=== PATIENT | female | born 1965 | race Caucasian/White ===

== ENCOUNTER → 2020-05-03 15:47 | Outpatient (BNVA) | payer OTHER, SELFPAY | PROVIDERS: Family Provider Nurse Practitioner; PCP Nurse Practitioner; Visit Provider Nurse Practitioner Family | DX: N39.0 Urinary tract infection, site not specified (principal); R30.0 Dysuria | CPT/HCPCS: 81003 ==

== ENCOUNTER 2020-05-20 08:15 | Outpatient (CLI) | payer OTHER, SELFPAY ==
--- NOTE | 2020-05-20 08:20 | MM_ITS ---
WS: [id number] Bilateral screening digital mammogram, 05/20/2020 Clinical Data: SCREENING Comparison: 04/23/2019, 01/18/2018, 06/27/2016, 07/13/2014, 03/02/2011, 03/03/2010, 01/02/2007. Findings: The breast parenchymal pattern shows heterogeneously density. No spiculated masses or clustered calc ifications are seen. There are no secondary signs of carcinoma. MM/[id number] Impression: 1. Negative bilateral mammogram unchanged. 2. Recommend annual screening mammograms. BIRADS: 1-Negative FOLLOW UP: 1 Year Follow-up The CAD core checker was used.
== END 2020-05-20 08:16 | disposition home or self-care (01) ==
LOC: RADSHAW 08:18
PROVIDERS: PCP Nurse Practitioner; Visit Provider Nurse Practitioner
DX: Z12.31 Encounter for screening mammogram for malignant neoplasm of breast (principal)
CPT/HCPCS: 77067

== ENCOUNTER 2020-07-07 11:49 | Outpatient (CLI) | payer OTHER, SELFPAY ==
[2020-07-07 12:04] VITALS: BMI 25.4
--- NOTE | 2020-07-07 12:04 | ECG_ITS ---
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 Interpretive Statements NAME OF STUDY: TREADMILL STRESS ECHOCARDIOGRAM INDICATION: Chest Pain PROCEDURE: At the baseline, the patient's blood pressure was 95/54 with a heart rate of 76. The baseline electrocardiogram showed normal sinus rhythm with normal ST-Ts.. The patient exercised for 4 minutes and 35 seconds on a standard Faisal protocol. Patient attained a maximum heart rate of 145 beats per minute(87% of the maximum predicted heart rate) with a blood pressure at the peak exercise of 138/80 mm Hg. The EKG at the peak exercise revealed no significant changes. Patient did not have any chest pain or any other significant symptoms During the recovery phase, there were no new changes. Blood pressure at the end of the recovery phase was 96/52 mm Hg with a heart rate of 75 per minute. Echocardiographic pictures were taken at the baseline, immediately following the peak exercise and during the recovery phase. CONCLUSION: 1. Normal EKG response to treadmill exercise 2. No exercise-induced chest pain or cardiac arrhythmia 3. Impaired exercise tolerance, attained a maximum of 7.0 METs 4. Please see separate report for the echocardiographic response to exercise. Electronically Signed On 07-15-2020 9:48:22 TRANSFORMER MAKER by Deion Boudreaux M.D. [id number]
[2020-07-07 12:56] VITALS: BP 113/78; PULSE 78
--- NOTE | 2020-07-07 13:00 | USCV_ITS ---
Stress Echo Linnea Schultz Age: 54 Gender: F : 1965 Exam Date: 07/07/2020 11:03 Ordering Phys: Deion Boudreaux MD ([email or web address]) Technologist: Milagros Arreguin Exam Location: [facility] [place] Indication: Dyspnea on exertion Rhythm: Sinus Patient History: smoker Cardiac Medications: none Medications in past 24 hours: none Contrast: Stress Results Protocol: Faisal Total dose(mL): Exercise Duration (min:sec): 04:35 METS: 7.0 Resting HR: 66 Resting BP: 94 / 54 Peak HR: 145 Peak BP: 138 / 81 Max Predicted HR: 165 88 % Max Predicted HR Target HR: 140 Double Product: [id number] Stress Summary: The patient's target heart rate was achieved The hemodynamic response to exercise was normal BP Response: Normal Reason for Termination: Test terminated after reaching target heart rate (85% max predicted) Cardiac Symptoms: Short of Breath, Leg fatigue ECG Analysis Resting ECG: Please see separate report Stress ECG: Please see separate report Arrhythmia: Please see separate report MEASUREMENTS (Male/Female) Normal Values FINDINGS The baseline echocardiogram will normal LV size and ejection fraction. Segmental wall motion analysis revealed no gross wall motion abnormalities. The mitral and the aortic valve morphology probably within normal limits.Nopericardial effusion. With the peak exercise, there was good augmentation of all the segments with no exercise-induced wall motion abnormalities. During the recovery phase, the wall motion returned to the baseline. CONCLUSIONS Normal echocardiographic response to treadmill exercise. No significant coronary ischemia, based on the above findings No similar previous studies are available for comparison Dr Deion Boudreaux MD [facility] (Electronically Signed) Final Date: 07 July 2020 14:30 S
== END 2020-07-07 11:50 | disposition home or self-care (01) ==
PROVIDERS: PCP Nurse Practitioner; Visit Provider Internal Medicine Cardiovascular Disease
DX: R07.89 Other chest pain (principal)
CPT/HCPCS: 93017; 93350

== ENCOUNTER → 2020-10-20 09:57 | Outpatient (BNVA) | payer OTHER, SELFPAY | PROVIDERS: PCP Nurse Practitioner; Visit Provider Nurse Practitioner Family | DX: B35.1 Tinea unguium (principal) | CPT/HCPCS: 80053 ==

== ENCOUNTER → 2021-08-19 08:21 | Outpatient (BNVA) | payer OTHER, SELFPAY | PROVIDERS: PCP Nurse Practitioner; Visit Provider Nurse Practitioner | DX: F41.9 Anxiety disorder, unspecified (principal); F32.9 Major depressive disorder, single episode, unspecified; Z13.6 Encounter for screening for cardiovascular disorders; Z12.39 Encounter for other screening for malignant neoplasm of breast | CPT/HCPCS: 80053; 80061; 84443 ==

== ENCOUNTER 2021-09-09 08:49 | Outpatient (CLI) | payer OTHER, SELFPAY ==
--- NOTE | 2021-09-09 08:55 | MM_ITS ---
WS: [id number] BILATERAL 3D TOMOSYNTHESIS DIGITAL SCREENING MAMMOGRAPHY WITH CAD CLINICAL INFORMATION: Z12.39 - Encounter for other screening for malignant neop... HISTORY: Screening mammogram. No current complaints. COMPARISON: May 20, 2020 TECHNIQUE: Bilateral CC and MLO views. FINDINGS: The breasts are composed of heterogeneous fibroglandular density tissue, which can limit the detectio n of small underlying mass lesions. No suspicious mass, asymmetry, calcifications, or architectural d istortion. No evidence of malignancy. MM/[place] [id number] IMPRESSION: BI-RADS: 1-Negative FOLLOW UP: 1 Year Follow-up Recommend return to annual screening mammography.
== END 2021-09-09 08:50 | disposition home or self-care (01) ==
LOC: RAD 08:51
PROVIDERS: PCP Nurse Practitioner; Visit Provider Nurse Practitioner
DX: Z12.31 Encounter for screening mammogram for malignant neoplasm of breast (principal)
CPT/HCPCS: 77063; 77067

== ENCOUNTER 2021-10-07 19:15 | Observation (INO) | payer OTHER, SELFPAY ==
[2021-10-07 19:37] VITALS: BP 104/64; PULSE 84; RESP 18; TEMP 37.8; O2SAT 92; BMI 26.6
--- NOTE | 2021-10-07 21:39 | CTR_ITS ---
PROCEDURE INFORMATION: Exam: CT Abdomen And Pelvis Without Contrast Exam date and time: 10/07/2021 10:24 PM Age: 55 years old Clinical indication: Abdominal pain; Other: Bilat; Prior surgery; Surgery date: 6+ months; Surgery type: Ooph, c-sect; Patient HX: C/O back/flank pain; Additional info: Back pain fever TECHNIQUE: Imaging protocol: Computed tomography of the abdomen and pelvis without contrast. Radiation optimization: All CT scans at this facility use at least one of these dose optimization techniques: automated exposure control; mA and/or kV adjustment per patient size (includes targeted exams where dose is matched to clinical indication); or iterative reconstruction. COMPARISON: CR XR hip LT 2-3V wo/w pel* [id number] 06/17/2020 10:03 AM RADIATION DOSE METRICS: Total DLP (mGy-cm): 1117.61 FINDINGS: Lungs: Mild atelectasis versus fibrosis noted at the lung bases. Liver: The liver is unremarkable in appearance. Gallbladder and bile ducts: No calcified gallstones in the gallbladder. No gallbladder wall thickening. No pericholecystic fluid. No biliary dilatation. Pancreas: The pancreas is normal in appearance. No pancreatic duct dilatation. Spleen: Calcified granulomas are noted in the spleen. Adrenal glands: The adrenal glands appear within normal limits. Kidneys and ureters: The kidneys are morphologically normal. No nephrolithiasis. No hydronephrosis. No ureteral calculi. No obstructive uropathy. Stomach and bowel: Mild diverticulosis of the sigmoid colon. No acute diverticulitis. Appendix: No evidence of appendicitis. Intraperitoneal space: No pneumoperitoneum. No significant fluid collection. Vasculature: Mild atherosclerosis of the abdominal aorta. No aortic aneurysm. Lymph nodes: No pathologically enlarged lymph nodes are demonstrated. Urinary bladder: The urinary bladder is unremarkable in appearance. Reproductive: Small calcified uterine myoma. No adnexal abnormality. Bones/joints: Unremarkable. No acute osseous abnormality. Soft tissues: Unremarkable. CT/CT kidney stone [id number] IMPRESSION: 1. The kidneys are morphologically normal. No nephrolithiasis. No hydronephrosis. No ureteral calculi. No obstructive uropathy. 2. Mild diverticulosis of the sigmoid colon. No acute diverticulitis. 3. No acute abnormality of the solid organs demonstrated. 4. Findings of old granulomatous disease are identified.
--- NOTE | 2021-10-07 21:42 | XRR_ITS ---
PROCEDURE INFORMATION: Exam: XR Chest Exam date and time: 10/07/2021 9:55 PM Age: 55 years old Clinical indication: Patient HX: C/O chest/back pain; Additional info: Cp TECHNIQUE: Imaging protocol: XR of the chest. Views: 1 view. COMPARISON: CR XR chest 2V* [id number] 05/20/2020 11:54 AM FINDINGS: Lungs: No consolidation. Pleural spaces: No pleural effusion. No pneumothorax. Heart/Mediastinum: No cardiomegaly. Vasculature: Atherosclerotic calcification noted in the aortic arch. Bones/joints: Unremarkable. XR/XR chest 1V portable [id number] IMPRESSION: 1. No acute abnormality demonstrated. 2. There is no interval change from the prior examination.
[2021-10-07 22:07] LABS: Basophils % 0.3 %; Eosinophils % 0.3 %; Hematocrit 46.2 % (37.0-47.0); Hemoglobin 15.3 g/dL (11.5-15.3); Lymphocytes # 0.9 10^3/uL (0.8-4.8); Lymphocytes % 24.9 %; Mean Corpuscular HGB Conc 33.1 g/dL (30.0-36.0); Mean Corpuscular Hemoglobin 29.9 pg (28.0-34.0); Mean Corpuscular Volume 90.2 fl (81-99); Mean Platelet Volume 9.9 fL (7.4-10.4); Monocytes # 0.2 10^3/uL (0.2-0.9); Monocytes % 5.8 %; Neutrophils # 2.36 10^3/uL (1.8-7.7); Neutrophils % 68.1 %; Nucleated Red Blood Cells % 0 %; Platelet Count 163 10^3/cmm (130-400); Red Blood Count 5.12 10^6/uL (4.1-5.3); Red Cell Distribution Width 13.1 % (12.1-15.1); White Blood Count 3.5 10^3/uL (4.0-10.0)
[2021-10-07 22:10] VITALS: RESP 18; O2SAT 97
[2021-10-07] MEDS: ondansetron 2 mg/ML SDV 2 mL 4 MG IVP (22:10)
[2021-10-07] MEDS: HYDROmorphone 1 mg/mL INJ 1 mL IVP (22:10)
[2021-10-07 22:16] VITALS: BP 94/69; PULSE 86; RESP 16; O2SAT 92
[2021-10-07 22:28] LABS: Alanine Aminotransferase 16 U/L (0-33); Albumin Level 4.5 g/dL (3.5-5.2); Alkaline Phosphatase 63 IU/L (35-105); Anion Gap 16.7 (5-19); Aspartate Amino Transferase 26 U/L (0-32); Blood Urea Nitrogen 8 mg/dL (6-20); Calcium 9.5 mg/dL (8.5-10.5); Carbon Dioxide 23 mmol/L (22-29); Chloride 98 mmol/L (98-107); Creatinine Clr Calc Pharmacy 125.4062; Globulin 2.6 g/dL (1.3-4.6); Glomerular Filtration Rate 127.6 mL/min (90-130); Glucose 154 mg/dL (65-115); Lipase 34 U/L (13-60); Osmolality Calculated 279 mOsm/kg (285-295); Potassium 3.7 mmol/L (3.5-5.1); Sodium 134 mmol/L (136-145); Total Bilirubin 0.2 mg/dL (0.15-1.2); Total Protein 7.1 g/dL (6.6-8.7)
[2021-10-07 22:30] LABS: Troponin(5th) Baseline 6 ng/L (0-10)
[2021-10-07] MEDS: sodium chloride 0.9% 1,000 ML 999 ML IV (22:55)
[2021-10-07 23:10] VITALS: RESP 17; O2SAT 97
[2021-10-07] MEDS: HYDROmorphone 1 mg/mL INJ 1 mL 0.5 MG IVP (23:10)
[2021-10-07 23:21] LABS: Influenza A by IFA Negative (Negative); Influenza B by IFA Negative (Negative)
[2021-10-08] VITALS (13 sets, daily range): BP systolic 70–102; BP diastolic 50–64; PULSE 57–79; RESP 14–19; TEMP 36.7–37.3; O2SAT 91–98; BMI 28.5
[2021-10-08 00:34] LABS: Add Urine Microscopic? YES; Bilirubin Urine Neg (Negative); Blood Urine 2+ (Negative); Glucose Urine UA Norm (Normal); Ketones Urine 1+ (Negative); Leukocyte Esterase Urine Negative (Negative); Nitrate Urine Negative (Negative); Protein Urine Neg (Negative); Urine Appearance Clear (CLEAR); Urine Color Yellow (Yellow); Urobilinogen Urine Norm (Negative); pH Urine 5 (5-7)
[2021-10-08 00:36] LABS: Add Urine Culture? No; Bacteria Urine TRACE /hpf; Hyaline Casts Urine 0-4 /lpf; Mucus Urine 1+ /hpf; Squamous Epithelial Cell Urine 0-4 /hpf (0-5); WBC Urine 0-4 /hpf (0-5)
--- NOTE | 2021-10-08 00:42 | ED_ITS ---
HPI - Back Pain/Injury General: Chief Complaint: Back Pain/Injury Stated Complaint: No Fall Back Pain Extremely Painfull Time Seen by Provider: 10/07/21 21:27 Source: patient History of Present Illness: 55-year-old female presenting with onset of low back pain yesterday. She states her pain is progressively gotten worse. She has had episodes of nausea and vomiting with the pain. She is also had a low- grade temperature of unknown source. No sick contacts. No real respiratory symptoms. She has had no diarrhea. No radicular pain into the legs. No significant shortness of breath. She does notes that the pain occasionally radiates up into her chest. MD elicited complaint: back pain Pertinent past history: other Onset (ago): day(s) Timing: constant Severity: severe Quality: sharp Location: lumbar spine Radiation: chest Relieving factors: none Context: other Associated symptoms: Reports difficulty walking, fever(s), vomiting and weakness (Generalized); Deny abdominal pain, fecal incontinence, syncope, tingling/numbness/burning or urinary frequency Review of Systems Const: Reports: fever(s) ENMT: Denies: throat pain Card: Denies: chest pain or syncope Resp: Denies: dyspnea, productive cough or non-productive cough GI: Reports: vomiting; Denies: abdominal pain or fecal incontinence Neuro: Reports: difficulty walking PFSH ED PFSH: Medical History Abuse of smoked substance Anxiety and depression Atypical chest pain Current smoker Former smoker Surgical History H/O oophorectomy History of lumpectomy of right breast Hx of section Family History Grandmother Cancer Breast Cancer Denies family history of Diabetes CAD (coronary artery disease) Clotting disorder Dementia Chronic kidney disease (CKD) Suicide Anesthesia complication Bleeding disorder Lung disease Stroke Social History Smoking and tobacco status: current every day smoker cigarettes Second hand smoke exposure: Yes Smoking risk assessment/counseling performed?: Yes Alcohol intake: current Alcohol intake frequency: holidays/special occasions only Desire information about alcohol rehabilitation?: No Counseling given: No Desire information about substance/drug rehabilitation?: No Counseling given: No Adopted: No Caregiver/support person: No Lives independently: Yes Household members: other Details: mother Housing: House Marital status: Number of children: 3 Highest education level completed: High School Graduate service: No Current occupational status: employed Current occupation: [employer] Current occupational exposures/hazards: No Pets and animals: No History of recent travel: No Current gender identity: Female Special rohit needs: No Physical Exam Const: GENERAL APPEARANCE: cooperative, in distress and ill appearing (mildly) ORIENTATION/CONSCIOUSNESS: Yes awake, Yes oriented to person, Yes oriented to place and Yes oriented to time HENMT: COMMON NORMALS: normocephalic and atraumatic HEAD & SCALP: normocephalic and atraumatic FACE & SINUS: normal facial exam Eye: COMMON NORMALS: Equal, round and reactive pupils present and EOMs intact bilaterally PUPIL: Yes Equal, round and reactive pupils present Neck/C-Spine: GENERAL: Yes trachea midline, No tender and No Meningeal signs present CERVICAL SPINE: Yes cervical ROM normal Chest: CHEST: Yes Symmetrical chest wall rise Resp: COMMON NORMALS: normal respiratory effort, No retractions and No use of accessory muscles Cardio: COMMON NORMALS: regular rate, regular rhythm and Peripheral pulses 2+ throughout RATE: regular rate RHYTHM: regular rhythm PERIPHERAL PULSES: Peripheral pulses 2+ throughout GI: COMMON NORMALS: Normal to inspection, nondistended, normoactive bowel sounds present, Soft to palpation and non-tender PALPATION: Yes Soft to palpation : BLADDER/KIDNEY EXAM: Yes CVA tenderness (mild) bilateral Back/Pelvis: GENERAL BACK: Yes CVA tenderness (mild) LUMBAR SPINE/LOWER BACK: Yes normal to inspection, Yes lumbar spinal tenderness, Yes paraspinal muscle tenderness and Yes straight leg raise negative bilaterally Extremity: NARRATIVE EXTREMITY EXAM: [place] intact to LE. Pulses intact. Strength intact L5 and S1 and equal. Neuro: SENSORIUM/ORIENTATION: Yes oriented to person, Yes oriented to place and Yes oriented to time SENSORY EXAM: Yes extremities (normal) Course Vital Signs: Vital signs: Vital Signs Temperature 98.2 F 10/08/21 15:22 Pulse Rate 63 10/08/21 15:22 Respiratory Rate 18 10/08/21 15:22 Blood Pressure 94/63 10/08/21 15:22 Pulse Oximetry 95 10/08/21 15:22 MDM - Back Pain/Injury Medical Decision Making Pain mildy difficult to control in the ER. She received 1.5 milligrams of delaudid and at 30 milligrams of toradol total. This was over a few hours. She d id have a temperature of 100.1. This improved with fluid and toradol. Blood pressures were mildly soft on arrival, 90s over 60s. Patient states these pressures are not abnormal for her. However, pressures have been low as 70s over 50s in the ER, this is despite 2.5 liters of fluid given to the patient. She has been vomiting due to the pain she says. Noncontrast CT of the belly does not reveal A cause. Her urinalysis is negative. Her white blood cell count is mildly low, with no neutropenia. No thrombocytopenia. Tick panel is sent. Chest X ray is negative. Influenza A swab is negative. She is vaccinated against COVID. Cause of the temperature has not yet been found. With fever of unknown origin, and hypertension, she'll be observed. There are no meningeal signs whatsoever, and the patient has not had a headache. Labs : 10/07/21 22:03 10/07/21 22:03 Radiology Impressions Abdomen/Pelvis CT 10/07/21 21:39 IMPRESSION: 1. The kidneys are morphologically normal. No nephrolithiasis. No hydronephrosis. No ureteral calculi. No obstructive uropathy. 2. Mild diverticulosis of the sigmoid colon. No acute diverticulitis. 3. No acute abnormality of the solid organs demonstrated. 4. Findings of old granulomatous disease are identified. Chest X-Ray 10/07/21 21:42 IMPRESSION: 1. No acute abnormality demonstrated. 2. There is no interval change from the prior examination. Lumbar Spine CT 10/08/21 06:34 IMPRESSION: No acute osseous pathology. Thoracic Spine CT 10/08/21 06:34 IMPRESSION: No acute osseous pathology. Laboratory Results WBC 3.5 10^3/uL (4.0-10.0) L 10/07/21 22:03 RBC 5.12 10^6/uL (4.1-5.3) 10/07/21 22:03 Hgb 15.3 g/dL (11.5-15.3) 10/07/21 22:03 Hct 46.2 % (37.0-47.0) 10/07/21 22:03 MCV 90.2 fl (81-99) 10/07/21 22:03 MCH 29.9 pg (28.0-34.0) 10/07/21 22: MCHC 33.1 g/dL (30.0-36.0) 10/07/21 22:03 RDW 13.1 % (12.1-15.1) 10/07/21 22:03 Plt Count 163 10^3/cmm (130-400) 10/07/21 22: MPV 9.9 fL (7.4-10.4) 10/07/21 22:03 Neut % (Auto) 68.1 % 10/07/21 22:03 Lymph % (Auto) 24.9 % 10/07/21 22: [place] % (Auto) 5.8 % 10/07/21 22: Eos % (Auto) 0.3 % 10/07/21 22: Baso % (Auto) 0.3 % 10/07/21: Neut # (Auto) 2.36 10^3/uL (1.8-7.7) 10/07/21 22: Lymph # (Auto) 0.9 10^3/uL (0.8-4.8) 10/07/21 22:03 [place] # (Auto) 0.2 10^3/uL (0.2-0.9) 10/07/21 22: Eos # (Auto) 0.0 10^3/uL (0.0-0.8) 10/07/21: Baso # (Auto) 0.0 10^3/uL (0.0-0.1) 10/07/21 22: Nucleated RBC % (auto) 0 % 10/07/21: Nucleated RBCs # 0.0 /100WBC 10/07/21 22: Sodium 134 mmol/L (136-145) L 10/07/21 22: Potassium 3.7 mmol/L (3.5-5.1) 10/07/21 22: Chloride 98 mmol/L (98-107) 10/07/21 22: Carbon Dioxide 23 mmol/L (22-29) 10/07/21 22: Anion Gap 16.7 (5-19) 10/07/21 22:03 BUN 8 mg/dL (6-20) 10/07/21 22: Creatinine 0.5 mg/dL (0.5-0.9) 10/07/21 22: GFR Calculation 127.6 mL/min (90-130) 10/07/21 22:03 Glucose 154 mg/dL (65-115) H 10/07/21 22: Calculated Osmolality 279 mOsm/kg (285-295) L 10/07/21 22: Calcium 9.5 mg/dL (8.5-10.5) 10/07/21 22: Total Bilirubin 0.2 mg/dL (0.15-1.2) 10/07/21 22: AST 26 U/L (0-32) 10/07/21: ALT 16 U/L (0-33) 10/07/21 22: Alkaline Phosphatase 63 IU/L (35-105) 10/07/21 22: Troponin T Baseline 6 ng/L (0-10) 10/07/21: Troponin T 120 Minute 7.18 ng/L (0-10) 10/08/21 00:33 Delta Troponin T Not Reportable 10/08/21 00:33 C-Reactive Protein 3.0 mg/L (0.0-4.9) 10/07/21 22: Total Protein 7.1 g/dL (6.6-8.7) 10/07/21 22: Albumin 4.5 g/dL (3.5-5.2) 10/07/21 22: Globulin 2.6 g/dL (1.3-4.6) 10/07/21 22: Lipase 34 U/L (13-60) 10/07/21 22:03 Urine Color Yellow (Yellow) 10/08/21 00:08 Urine Appearance Clear (CLEAR) 10/08/21 00:08 Urine pH 5 (5-7) 10/08/21 00:08 Ur Specific [place] 1.030 (1.005-1.030) 10/08/21 00:08 Urine Protein Neg (Negative) 10/08/21 00:08 Urine Glucose (UA) Norm (Normal) 10/08/21 00:08 Urine Ketones 1+ (Negative) H 10/08/21 00:08 Urine Blood 2+ (Negative) H 10/08/21 00:08 Urine Nitrate Negative (Negative) 10/08/21 00:08 Urine Bilirubin Neg (Negative) 10/08/21 00:08 Urine Urobilinogen Norm mg/dL (Negative) 10/08/21 00:08 Ur Leukocyte Esterase Negative (Negative) 10/08/21 00:08 Urine RBC 5-10 /hpf (0-2) H 10/08/21 00:08 Urine WBC 0-4 /hpf (0-5) H 10/08/21 00:08 Ur Squamous Epith Cells 0-4 /hpf (0-5) H 10/08/21 00:08 Amorphous Sediment Not Reportable 10/08/21 00:08 Urine Bacteria Trace /hpf (NONE) 10/08/21 00:08 Hyaline Casts 0-4 /lpf H 10/08/21 00:08 Urine Mucus 1+ /hpf 10/08/21 00:08 Influenza Type A Ag Negative (Negative) 10/07/21 22:48 Influenza Type B Ag Negative (Negative) 10/07/21 22:48 Discharge Plan Discharge Patient Disposition: Placed in Observation Admit Provider: Monisha Ochoa Clinical Impression: Back pain, Febrile leukopenia Condition: Stable Coding Level of Care Code ED Summer Babysitter for Geneva Soni
[2021-10-08 00:54] LABS: Troponin 5 2HR 7.18 ng/L (0-10)
[2021-10-08] MEDS: ketorolac 30 mg/mL INJ 15 MG IVP ×2 (01:04→06:01)
--- NOTE | 2021-10-08 02:37 | ECG_ITS ---
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 Measurements Intervals [place] Rate: 63 P: 50 VT: 169 QRS: 63 QRSD: 82 T: 52 QT: 389 QTc: 400 Interpretive Statements SINUS RHYTHM POSSIBLE LEFT ATRIAL ENLARGEMENT [-0.1mV P-WAVE IN V1/V2] No previous ECG available for comparison Electronically Signed On 10-08-2021 22:01:28 CDT by Deion Boudreaux M.D. [id number]
[2021-10-08] MEDS: sodium chloride 0.9% 500 ML 999 ML IV (02:56)
[2021-10-08] MEDS: doxycycline 100 mg Tablet PO (03:36)
--- NOTE | 2021-10-08 03:37 | PC.NURSE ---
Medication dose sent home with patient x2 tab 5/325mg Oxycodone/Acetaminophen sent home with patient for pain control until prescription filled at pharmacy.
[2021-10-08] MEDS: sodium chloride 0.9% 1,000 ML 999 ML IV (04:10)
--- NOTE | 2021-10-08 05:12 | P.HP_ITS ---
Providers/Chief Complaint Primary Care Provider: Edilson Francis, INSTRUMENT MAKER-C Chief Complaint: No Fall Back Pain Extremely Painfull History of Present Illness Linnea Schultz is a 55 year old female who presented to the hospital with chief complaint of back pain. Patient is stating that her back pain is chronic, she has disc bulging, she does not take any medications for her back pain. She has not noticed any gait ataxia, urine incontinence, sensory changes of the medial side of her thighs. No rectal incontinence. No fever. Because of excruciating back pain she started sprinting dry heaves and that brought her to the hospital. 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. Does not take any medication on regular basis. At baseline her blood pressure runs 90/60 mmHg, stress test last year was unremarkable, TSH is normal, I requested random cortisol level we will give her a dose of hydrocortisone At the time of my evaluation she has paraspinal tenderness, no tenderness at the level of spine She does not have any signs of spinal cord compressions At the time of my evaluation blood pressure is 91/60mmhg Pain 09/11 Daughter is at the bedside She is willing to try gabapentin and cyclobenzaprine and see Dr. Bird for possible trigger injections, negative leg raise test bilaterally There is an isolated T-max 100.1 however she does not have any source of infection, possible erroneous reading, no signs of spinal abscess, no signs of meningitis, diagnostic work-up is unremarkable Review of Systems Const: Denies: fever(s) Eyes: Denies: change in vision ENMT: Denies: throat pain Card: Denies: chest pain Resp: Denies: dyspnea GI: Denies: abdominal pain : Denies: flank pain Musc: Reports: back pain Skin/Breast: Denies: rash Neuro: Denies: headache(s) Psych: Denies: anxiety Endo: Denies: polyuria Gareth/Lymph: Denies: easy bruising All/Imm: Denies: urticaria Medications/Allergies Home Medications Medication Instructions Recorded Confirmed Last Taken Type escitalopram oxalate 5 mg tablet 5 mg PO DAILY #90 tab 08/19/21 08/19/21 Unknown Rx doxycycline hyclate 100 mg 100 mg PO Q12H 14 Days #28 tab 10/08/21 Unknown Rx tablet,delayed release ondansetron 4 mg oral soluble film 4 mg PO DAILY PRN #10 each 10/08/21 Unknown Rx oxycodone-acetaminophen 7.5 mg-325 1 tab PO Q6H PRN #10 tab 10/08/21 Unknown Rx mg tablet (Percocet) Allergies Allergy/AdvReac Type Severity Reaction Status Date / Time No Known Allergies Allergy Verified 10/20/20 09:24 PFSH Acute PFSH: Medical History Abuse of smoked substance Anxiety and depression Atypical chest pain Current smoker Former smoker Surgical History H/O oophorectomy History of lumpectomy of right breast Hx of section Family History Grandmother Cancer Breast Cancer Denies family history of Diabetes CAD (coronary artery disease) Clotting disorder Dementia Chronic kidney disease (CKD) Suicide Anesthesia complication Bleeding disorder Lung disease Stroke Social History Smoking and tobacco status: current every day smoker cigarettes Second hand smoke exposure: Yes Smoking risk assessment/counseling performed?: Yes Alcohol intake: current Alcohol intake frequency: holidays/special occasions only Desire information about alcohol rehabilitation?: No Counseling given: No Desire information about substance/drug rehabilitation?: No Counseling given: No Adopted: No Caregiver/support person: No Lives independently: Yes Household members: other Details: mother Housing: House Marital status: Number of children: 3 Highest education level completed: High School Graduate service: No Current occupational status: employed Current occupation: [employer] Current occupational exposures/hazards: No Pets and animals: No History of recent travel: No Current gender identity: Female Special rohit needs: No Vitals/I&O/Wt Last Vital Signs Temp 98.5 F 10/08/21 02:19 Pulse 57 L 10/08/21 05:01 Resp 14 10/08/21 05:01 BP 80/52 10/08/21 05:01 Pulse Ox 91 10/08/21 05:01 10/07/21 10/07/21 10/08/21 14:59 22:59 06:59 Intake Total 2500 / 2500 Balance 2500 / 2500 Weight last 48 hrs Weight 72.575 kg Physical Exam Narrative: Pleasant and cooperative female Blood pressure at the time of my evaluation 91/60 mmHg No signs of meningitis She is able to raise her legs without any worsening of her pain No signs of meningitis Negative leg raise test bilaterally No signs of cauda equina Euvolemic S1, S2 No audible stridor or wheezing Abdomen soft Well-groomed Euvolemic She does have paraspinal muscle tenderness in lower back area, no bulging or tenderness of midline spine area Data : 10/07/21 22:03 10/07/21 22:03 A&P Assessment and plan (1) Back pain: Status: Acute (2) Back pain: Status: Acute (3) Paraspinal muscle spasm: Status: Acute Plan Back pain with paraspinal muscle spasm Negative leg raise test No signs of cauda equina I would request CT scan of lumbosacral area She might benefit from orthopedic outpatient referral with Dr. Bird for trigger injections For now I will add cyclobenzaprine and gabapentin for her. Uses I have counseled patient not to drive after taking these medications Daughter is at the bedside as well Hypotension: Patient is stating chronically her blood pressure runs 90/60 mmHg, she was experiencing excruciating pain, after getting opiates in the ER her blood pressure dropped to 70s, she received 2 L of fluid which improved her blood pressure, I will give her 1 dose of hydrocortisone as well, TSH is normal, check cortisol level She might benefit from liberal salt intake Full code Cardiac diet DVT prophylaxis on board She may be able to go home today Attestations Medical Necessity Statement*: Anticipating discharge within 48 hours will need overnight monitoring for hypotension, need IV fluids, CT scan of lumbar area requested Time Spent in Patient Care: 40mins Coding Level of Care Code Acute Manufacturing Finance Manager for Chg Fwd Diagnoses Back pain M54.9 Back pain M54.9 Paraspinal muscle spasm M62.830
[2021-10-08 05:42] LABS: Troponin 5 6HR 6.64 ng/L (0-10)
[2021-10-08 05:54] LABS: Cortisol Random 3.22 ug/dL (2.47-19.5)
[2021-10-08 06:25] LABS: Glucose Point of Care 96 mg/dL (70-110)
[2021-10-08] MEDS: enoxaparin 40 mg/0.4 mL Syringe SUBCUT (06:27)
[2021-10-08] MEDS: hydrocortisone 100 mg/2 mL SDV IVP (06:27)
[2021-10-08] MEDS: sodium chloride 0.9% 1,000 ML 75 ML IV ×2 (06:27→18:38)
--- NOTE | 2021-10-08 06:34 | CTR_ITS ---
PROCEDURE INFORMATION: Exam: CT Thoracic Spine Without Contrast Exam date and time: 10/08/2021 7:48 AM Age: 55 years old Clinical indication: Pain in thoracic spine; Additional info: Back pain TECHNIQUE: Imaging protocol: Computed tomography images of the thoracic spine without contrast. Total images: 442 Radiation optimization: All CT scans at this facility use at least one of these dose optimization techniques: automated exposure control; mA and/or kV adjustment per patient size (includes targeted exams where dose is matched to clinical indication); or iterative reconstruction. COMPARISON: CT lumbar spine wo con* [id number] 10/08/2021 7:46 AM RADIATION DOSE METRICS: Total DLP (mGy-cm): 994.99 FINDINGS: Vertebrae: No acute fracture nor subluxation. No osseous erosion nor periosteal reaction. Discs/Spinal canal/Neural foramina: No significant disc protrusion. No severe spinal canal stenosis. No significant neural foraminal narrowing. Soft tissues: Unremarkable. Lymph nodes: Calcified mediastinal and hilar nodes noted. Lungs: Mild dependent atelectasis. Spleen: Incidental splenic granulomata are noted. CT/CT thoracic spin wo con* [id number] IMPRESSION: No acute osseous pathology.
--- NOTE | 2021-10-08 06:34 | CTR_ITS ---
PROCEDURE INFORMATION: Exam: CT Lumbar Spine Without Contrast Exam date and time: 10/08/2021 7:46 AM Age: 55 years old Clinical indication: Low back pain TECHNIQUE: Imaging protocol: Computed tomography images of the lumbar spine without contrast. Total images: 340 Radiation optimization: All CT scans at this facility use at least one of these dose optimization techniques: automated exposure control; mA and/or kV adjustment per patient size (includes targeted exams where dose is matched to clinical indication); or iterative reconstruction. COMPARISON: CT kidney stone [id number] 10/07/2021 10:24 PM RADIATION DOSE METRICS: Total DLP (mGy-cm): 2193.97 FINDINGS: Vertebrae: Bone island on the left side of L5. Vertebral body heights are maintained. No evidence of spondylolysis nor spondylolisthesis. No acute fracture nor subluxation. No osseous erosion nor periosteal reaction. Discs/Spinal canal/Neural foramina: No significant disc protrusion. No severe spinal canal stenosis. No significant neural foraminal narrowing. Vasculature: Mild atherosclerotic disease is evident. Soft tissues: Unremarkable. Other findings: Incidental splenic granulomata are noted. CT/CT lumbar spine wo con* [id number] IMPRESSION: No acute osseous pathology.
[2021-10-08] MEDS: gabapentin 100 mg Capsule PO (06:38)
[2021-10-08] MEDS: cyclobenzaprine 10 mg Tablet 5 MG PO (06:38)
[2021-10-08 09:52] LABS: Lactate (Lactic Acid level) 0.9 mmol/L (0.5-2.2)
[2021-10-08] MEDS: gabapentin 100 mg Capsule 300 MG PO ×2 (10:05→22:36)
[2021-10-08] MEDS: sennosides-docusate Tablet 1 TAB PO (10:05)
--- NOTE | 2021-10-08 10:26 | P.PN_ITS ---
Subjective Subjective: Patient was seen this morning, continues to have intractable pain, however she tells me that Dilaudid helped, no nausea, no vomiting, no headache, no blurry vision, no focal neurologic deficits, no paresthesias, no urinary or bowel incontinence, no fevers Vitals/I&O/Wt Last Vital Signs Temp 98.9 F 10/08/21 07:22 Pulse 68 10/08/21 09:36 Resp 18 10/08/21 07:22 BP 91/61 10/08/21 09:36 Pulse Ox 93 10/08/21 07:22 10/07/21 10/08/21 10/08/21 22:59 06:59 14:59 Intake Total 2500 / 2500 720 / 720 Balance 2500 / 2500 720 / 720 Weight last 48 hrs Weight 75.568 kg Weight 77.973 kg Weight 72.575 kg Physical Exam Const: COMMON NORMALS: no acute distress and patient oriented x3 Resp: COMMON NORMALS: normal respiratory effort, No retractions, No use of accessory muscles and clear to auscultation bilaterally AUSCULTATION: clear to auscultation bilaterally Cardio: COMMON NORMALS: regular rate, regular rhythm, S1 normal heart sound present and S2 normal heart sound present RATE: regular rate RHYTHM: regular rhythm HEART SOUNDS: S1 normal heart sound present and S2 normal heart sound present GI: COMMON NORMALS: Normal to inspection, nondistended, normoactive bowel sounds present, Soft to palpation, non-tender and No hepatosplenomegaly present PALPATION: Yes Soft to palpation and Yes No hepatosplenomegaly present Extremity: COMMON NORMALS: no pedal edema Neuro: COMMON NORMALS: patient oriented x3 Psych: COMMON NORMALS: mental status grossly normal Data : 10/07/21 22:03 10/07/21 22:03 A&P Assessment and plan (1) Back pain: Status: Acute (2) Back pain: Status: Acute (3) Paraspinal muscle spasm: Status: Acute Plan Back pain with paraspinal muscle spasm Negative leg raise test No signs of cauda equina CT scan of lumbar and thoracic spine has no acute findings She might benefit from orthopedic outpatient referral with Dr. Bird for trigger injections Start gabapentin 300 twice daily, add baclofen 10 3 times daily as needed, oxycodone 10/04/2024 every 6 hours as needed I have counseled patient not to drive after taking these medications Daughter is at the bedside as well Hypotension: Patient is stating chronically her blood pressure runs 90/60 mmHg, she was experiencing excruciating pain, after getting opiates in the ER her blood pressure dropped to 70s, she received 2 L of fluid which improved her blood pressure, I will give her 1 dose of hydrocortisone as well, TSH is normal, check cortisol level She might benefit from liberal salt intake Full code Cardiac diet DVT prophylaxis on board Attestations Medical Necessity Statement*: Patient requires hospitalization for acute back pain, intractable pain, hypertension Coding Level of Care Code Acute Non Ferrous Material Handler for Chg Fwd Diagnoses Back pain M54.9 Back pain M54.9 Paraspinal muscle spasm M62.830
[2021-10-08 11:10] LABS: Glucose Point of Care 161 mg/dL (70-110)
[2021-10-08 16:49] LABS: Glucose Point of Care 133 mg/dL (70-110)
[2021-10-08 20:32] LABS: Glucose Point of Care 133 mg/dL (70-110)
[2021-10-08] MEDS: baclofen 10 mg Tablet PO (20:59)
[2021-10-09] VITALS: BP 93/62; PULSE 61; RESP 16; TEMP 36.9; O2SAT 92
[2021-10-09 03:57] LABS: Basophils % 0.3 %; Eosinophils % 0.3 %; Hematocrit 38.5 % (37.0-47.0); Hemoglobin 12.5 g/dL (11.5-15.3); Lymphocytes # 1.4 10^3/uL (0.8-4.8); Lymphocytes % 46.8 %; Mean Corpuscular HGB Conc 32.5 g/dL (30.0-36.0); Mean Corpuscular Hemoglobin 29.9 pg (28.0-34.0); Mean Corpuscular Volume 92.1 fl (81-99); Mean Platelet Volume 10.1 fL (7.4-10.4); Monocytes # 0.2 10^3/uL (0.2-0.9); Monocytes % 6.4 %; Neutrophils # 1.37 10^3/uL (1.8-7.7); Neutrophils % 45.9 %; Nucleated Red Blood Cells % 0 %; Platelet Count 134 10^3/cmm (130-400); Red Blood Count 4.18 10^6/uL (4.1-5.3); Red Cell Distribution Width 13.2 % (12.1-15.1)
[2021-10-09 04:00] VITALS: BP 111/74; PULSE 82; RESP 17; TEMP 36.9; O2SAT 93
[2021-10-09 04:22] LABS: Alanine Aminotransferase 12 U/L (0-33); Albumin Level 3.2 g/dL (3.5-5.2); Alkaline Phosphatase 44 IU/L (35-105); Aspartate Amino Transferase 21 U/L (0-32); Blood Urea Nitrogen 8 mg/dL (6-20); Calcium 8.2 mg/dL (8.5-10.5); Carbon Dioxide 22 mmol/L (22-29); Chloride 109 mmol/L (98-107); Creatinine Clr Calc Pharmacy 129.6886; Globulin 1.6 g/dL (1.3-4.6); Glomerular Filtration Rate 127.6 mL/min (90-130); Glucose 101 mg/dL (65-115); Magnesium 1.7 mg/dL (1.7-2.3); Osmolality Calculated 288 mOsm/kg (285-295); Sodium 140 mmol/L (136-145); Total Bilirubin 0.2 mg/dL (0.15-1.2); Total Protein 4.8 g/dL (6.6-8.7)
[2021-10-09 04:25] LABS: Anion Gap 12.7 (5-19); Potassium 3.7 mmol/L (3.5-5.1)
[2021-10-09] MEDS: enoxaparin 40 mg/0.4 mL Syringe SUBCUT (05:36)
[2021-10-09 06:32] LABS: Glucose Point of Care 93 mg/dL (70-110)
[2021-10-09] MEDS: baclofen 10 mg Tablet PO (07:37)
[2021-10-09 07:44] VITALS: BP 113/79; PULSE 74; RESP 18; TEMP 36.6; O2SAT 94
[2021-10-09] MEDS: gabapentin 100 mg Capsule 300 MG PO (08:39)
[2021-10-09] MEDS: sennosides-docusate Tablet 1 TAB PO (08:40)
[2021-10-09] MEDS: sodium chloride 0.9% 1,000 ML 75 ML IV (08:40)
[2021-10-09 11:43] LABS: Glucose Point of Care 112 mg/dL (70-110)
[2021-10-09 11:54] VITALS: BP 109/60; PULSE 99; RESP 17; TEMP 37.3; O2SAT 90
--- NOTE | 2021-10-09 12:28 | PM.DCS ---
Discharge Providers Date of Admission: 10/08/21 05:15 Date of Discharge: October 09, 2021 Attending Provider at Admission: Monisha Ochoa MD Attending Provider at Discharge: Nahid Guardado MD Primary Care Provider: PAGE Dugan Diagnoses at Discharge Discharge Diagnosis (1) Back pain: Status: Acute (2) Back pain: Status: Acute (3) Paraspinal muscle spasm: Status: Acute Reason for Visit Reason for Visit: No Fall Back Pain Extremely Painfull Hospital Course Hospital Course This is a 55-year-old female, who presents to [facility] for low back pain and hypotension Patient was admitted [facility] for acute low back pain likely a combination of paraspinal muscle spasm, with lumbar radiculopathy, imaging as below Vertebrae: No acute fracture nor subluxation. No osseous erosion nor periosteal reaction. Discs/Spinal canal/Neural foramina: No significant disc protrusion. No severe spinal canal stenosis. No significant neural foraminal narrowing. Soft tissues: Unremarkable. Lymph nodes: Calcified mediastinal and hilar nodes noted. Lungs: Mild dependent atelectasis. Spleen: Incidental splenic granulomata are noted. 1. The kidneys are morphologically normal. No nephrolithiasis. No hydronephrosis. No ureteral calculi. No obstructive uropathy. 2. Mild diverticulosis of the sigmoid colon. No acute diverticulitis. 3. No acute abnormality of the solid organs demonstrated. 4. Findings of old granulomatous disease are identified. She was managed with pain control, clinically improved, discharged with follow-up with Dr. Bird as outpatient. I will discharge her on a short supply of oxycodone to be used as needed and sparingly for back pain. Gabapentin 300 mg twice daily for neuropathic pain And Flexeril 10 mg 3 times daily as needed for muscle spasms. Patient was advised to do not drive or operate heavy machinery or drink alcohol while taking medications, use controlled substance sparingly. For hypotension, resolved with IV fluids, no significant infectious source Physical Exam Const: COMMON NORMALS: no acute distress and patient oriented x3 Resp: COMMON NORMALS: normal respiratory effort, No retractions, No use of accessory muscles and clear to auscultation bilaterally AUSCULTATION: clear to auscultation bilaterally Cardio: COMMON NORMALS: regular rate, regular rhythm, S1 normal heart sound present and S2 normal heart sound present RATE: regular rate RHYTHM: regular rhythm HEART SOUNDS: S1 normal heart sound present and S2 normal heart sound present GI: COMMON NORMALS: Normal to inspection, nondistended, normoactive bowel sounds present, Soft to palpation and non-tender PALPATION: Yes Soft to palpation Extremity: COMMON NORMALS: no pedal edema Neuro: COMMON NORMALS: patient oriented x3 Psych: COMMON NORMALS: mental status grossly normal Discharge Data Studies Completed and Pending Completed Studies During Hospitalization Category Date Time Status CT kidney stone [id number] Urgent Cat Scan 10/07/21 21:[address] lumbar spine wo con* [id number] Urgent Cat Scan 10/08/21 06:[address] thoracic spin wo con* [id number] Urgent Cat Scan 10/08/21 06:34 Completed XR chest 1V portable [id number] Stat Exams 10/07/21 21:42 Completed Pending at discharge Category Date Time Status Complete Blood Count w/Auto AM LABS Lab 10/10/21 04:00 Ordered Complete Blood Count w/Auto AM LABS Lab 10/11/21 04:00 Ordered Comprehensive Metabolic Panel AM LABS Lab 10/10/21 04:00 Ordered Comprehensive Metabolic Panel AM LABS Lab 10/11/21 04:00 Ordered Tick Panel Stat Lab 10/08/21 05:15 Received Radiology Impressions Abdomen/Pelvis CT 10/07/21 21:39 IMPRESSION: 1. The kidneys are morphologically normal. No nephrolithiasis. No hydronephrosis. No ureteral calculi. No obstructive uropathy. 2. Mild diverticulosis of the sigmoid colon. No acute diverticulitis. 3. No acute abnormality of the solid organs demonstrated. 4. Findings of old granulomatous disease are identified. Chest X-Ray 10/07/21 21:42 IMPRESSION: 1. No acute abnormality demonstrated. 2. There is no interval change from the prior examination. Lumbar Spine CT 10/08/21 06:34 IMPRESSION: No acute osseous pathology. Thoracic Spine CT 10/08/21 06:34 IMPRESSION: No acute osseous pathology. Laboratory Results WBC 3.0 10^3/uL (4.0-10.0) L 10/09/21 03:23 RBC 4.18 10^6/uL (4.1-5.3) 10/09/21 03:23 Hgb 12.5 g/dL (11.5-15.3) 10/09/21 03:23 Hct 38.5 % (37.0-47.0) 10/09/21 03: MCV 92.1 fl (81-99) 10/09/21 03:23 MCH 29.9 pg (28.0-34.0) 10/09/21 03: MCHC 32.5 g/dL (30.0-36.0) 10/09/21 03: RDW 13.2 % (12.1-15.1) 10/09/21 03:23 Plt Count 134 10^3/cmm (130-400) 10/09/21 03:23 MPV 10.1 fL (7.4-10.4) 10/09/21 03:23 Neut % (Auto) 45.9 % 10/09/21 03: Lymph % (Auto) 46.8 % 10/09/21 03:23 Baxter % (Auto) 6.4 % 10/09/21 03:23 Eos % (Auto) 0.3 % 10/09/21 03:23 Baso % (Auto) 0.3 % 10/09/21 03:23 Neut # (Auto) 1.37 10^3/uL (1.8-7.7) L 10/09/21 03: Lymph # (Auto) 1.4 10^3/uL (0.8-4.8) 10/09/21 03:23 Baxter # (Auto) 0.2 10^3/uL (0.2-0.9) 10/09/21 03:23 Eos # (Auto) 0.0 10^3/uL (0.0-0.8) 10/09/21 03: Baso # (Auto) 0.0 10^3/uL (0.0-0.1) 10/09/21 03:23 Nucleated RBC % (auto) 0 % 10/09/21 03: Nucleated RBCs # 0.0 /100WBC 10/09/21 03: Sodium 140 mmol/L (136-145) 10/09/21 03:23 Potassium 3.7 mmol/L (3.5-5.1) 10/09/21 03:23 Chloride 109 mmol/L (98-107) H 10/09/21 03:23 Carbon Dioxide 22 mmol/L (22-29) 10/09/21 03:23 Anion Gap 12.7 (5-19) 10/09/21 03:23 BUN 8 mg/dL (6-20) 10/09/21 03:23 Creatinine 0.5 mg/dL (0.5-0.9) 10/09/21 03:23 GFR Calculation 127.6 mL/min (90-130) 10/09/21 03:23 Glucose 101 mg/dL (65-115) 10/09/21 03:23 POC Glucose 112 mg/dL (70-110) H 10/09/21 10:53 Calculated Osmolality 288 mOsm/kg (285-295) 10/09/21 03:23 Lactate 0.9 mmol/L (0.5-2.2) 10/08/21 09:20 Calcium 8.2 mg/dL (8.5-10.5) L 10/09/21 03:23 Magnesium 1.7 mg/dL (1.7-2.3) 10/09/21 03:23 Total Bilirubin 0.2 mg/dL (0.15-1.2) 10/09/21 03:23 AST 21 U/L (0-32) 10/09/21 03:23 ALT 12 U/L (0-33) 10/09/21 03:23 Alkaline Phosphatase 44 IU/L (35-105) 10/09/21 03:23 Troponin T Baseline 6 ng/L (0-10) 10/07/21 22:03 Troponin T 120 Minute 7.18 ng/L (0-10) 10/08/21 00:33 Delta Troponin T Not Reportable 10/08/21 00:33 Troponin T Hi Sens 6Hr 6.64 ng/L (0-10) 10/08/21 05:15 Troponin T Hi Sens 6Hr Delta Not Reportable 10/08/21 05:15 C-Reactive Protein 3.0 mg/L (0.0-4.9) 10/07/21 22:03 Total Protein 4.8 g/dL (6.6-8.7) L 10/09/21 03:23 Albumin 3.2 g/dL (3.5-5.2) L 10/09/21 03:23 Globulin 1.6 g/dL (1.3-4.6) 10/09/21 03:23 Lipase 34 U/L (13-60) 10/07/21 22:03 Random Cortisol 3.22 ug/dL (2.47-19.5) 10/08/21 05:15 Urine Color Yellow (Yellow) 10/08/21 00:08 Urine Appearance Clear (CLEAR) 10/08/21 00:08 Urine pH 5 (5-7) 10/08/21 00:08 Ur Specific [place] 1.030 (1.005-1.030) 10/08/21 00:08 Urine Protein Neg (Negative) 10/08/21 00:08 Urine Glucose (UA) Norm (Normal) 10/08/21 00:08 Urine Ketones 1+ (Negative) H 10/08/21 00:08 Urine Blood 2+ (Negative) H 10/08/21 00:08 Urine Nitrate Negative (Negative) 10/08/21 00:08 Urine Bilirubin Neg (Negative) 10/08/21 00:08 Urine Urobilinogen Norm mg/dL (Negative) 10/08/21 00:08 Ur Leukocyte Esterase Negative (Negative) 10/08/21 00:08 Urine RBC 5-10 /hpf (0-2) H 10/08/21 00:08 Urine WBC 0-4 /hpf (0-5) H 10/08/21 00:08 Ur Squamous Epith Cells 0-4 /hpf (0-5) H 10/08/21 00:08 Amorphous Sediment Not Reportable 10/08/21 00:08 Urine Bacteria Trace /hpf (NONE) 10/08/21 00:08 Hyaline Casts 0-4 /lpf H 10/08/21 00:08 Urine Mucus 1+ /hpf 10/08/21 00:08 Influenza Type A Ag Negative (Negative) 10/07/21 22:48 Influenza Type B Ag Negative (Negative) 10/07/21 22:48 Vitals Last Vital Signs Temp 99.1 F 10/09/21 11:54 Pulse 99 10/09/21 11:54 Resp 17 10/09/21 11:54 BP 109/60 10/09/21 11:54 Pulse Ox 90 10/09/21 11:54 Discharge Plan Discharge Patient Disposition: Home Condition: Stable Prescriptions: New ondansetron 4 mg film 4 mg PO DAILY PRN (Reason: nausea and vomiting) Qty: 10 0RF doxycycline hyclate 100 mg tablet,delayed release (DR/EC) 100 mg PO Q12H 14 Days Qty: 28 0RF cyclobenzaprine 10 mg Tablet 10 mg PO TID PRN (Reason: Muscle Spasms) 7 Days Qty: 21 0RF gabapentin 300 mg capsule 300 mg PO Q12H 30 Days Qty: 60 0RF oxycodone-acetaminophen 5-325 mg Tablet 1 tab PO Q6H PRN (Reason: Moderate Pain) 7 Days Qty: 28 0RF Continued escitalopram oxalate 5 mg tablet 5 mg PO DAILY Qty: 90 1RF Discharge Orders: Discharge Order (Routine); Ordered 10/09/21 Ordered By: Nahid Guardado Referrals: Domenico Bird DO [Physician] - 1-3 days (back pain) Edilson Francis FNP-C [Primary Care Provider] - 1-3 days Patient Instructions: Back Pain (ED), Opioid Safety Activity Restrictions/Additional Instructions: Return for worsening pain despite treatment, inability to control fever, vomiting liquids or medications, worsening lethargy or mental status, any other concerning symptoms. Antibiotics as directed. You will get a call if your tick panel is positive for tick fever. -Please do not drive or operate heavy machinery or drink alcohol while taking Flexeril or gabapentin or oxycodone -Use oxycodone sparingly Discharge Attestations Time Spent in Discharge Care*: less than 30 min Quality Metrics Clinical Quality Measures [ No reported AMI, CVA or VTE this stay] Coding Level of Care Code Acute g [facility] note Diagnoses Back pain M54.9 Back pain M54.9 Paraspinal muscle spasm M62.830
--- NOTE | 2021-10-09 14:11 | PC.NURSE ---
Discussed discharge, follow up appointments and medications with patient. Verbalized understanding.
[2021-10-09 14:32] VITALS: BP 109/60; PULSE 99; RESP 17; TEMP 37.3; O2SAT 90
[2021-10-10 16:07] LABS: Lyme AB Screen <0.90 index
[2021-10-12 18:33] LABS: RMSF IGG NOT DETECTED; RMSF IGM NOT DETECTED
[2021-10-13 17:21] LABS: E. Chaffeensis AB IGG <1:64; E. Chaffeensis AB IGM <1:20
--- NOTE | 2021-11-09 15:23 | DCPLANNER ---
late entry - Case manger had message to speak with patient about getting a primary care physician, was admitted to hospital - patient has a primary care physician.
== END 2021-10-09 12:23 | disposition home or self-care (01) ==
LOC: ER 10-08 04:15 → MEDSURG 10-08 05:41
PROVIDERS: Emergency Medicine; Admitting Provider Internal Medicine; Emergency Provider Emergency Medicine; PCP Nurse Practitioner; Visit Provider Family Medicine
DX: M54.9 Dorsalgia, unspecified (principal); M62.830 Muscle spasm of back; F41.9 Anxiety disorder, unspecified; F32.9 Major depressive disorder, single episode, unspecified; F17.210 Nicotine dependence, cigarettes, uncomplicated
CPT/HCPCS: 36415; 36416; 71045; 72128; 72131; 74176; 80053; 81001; 82533; 82962; 83605; 83690; 83735; 84484; 85025; 86140; 86618; 86666; 86757; 87804; 93005; 96372; 96374; 96375; 96376; 99285; G0378; J1170; J1650; J1720; J1885; J2405; J7030; J7040

== ENCOUNTER → 2022-03-14 16:18 | Outpatient (BNVA) | payer OTHER, SELFPAY | PROVIDERS: PCP Nurse Practitioner; Visit Provider Nurse Practitioner | DX: E66.3 Overweight (principal); E78.2 Mixed hyperlipidemia; F41.9 Anxiety disorder, unspecified; F32.9 Major depressive disorder, single episode, unspecified; R09.89 Other specified symptoms and signs involving the circulatory and respiratory systems; R01.1 Cardiac murmur, unspecified | CPT/HCPCS: 80053; 80061 ==

== ENCOUNTER 2022-05-04 07:28 | Outpatient (CLI) | payer OTHER, SELFPAY ==
--- NOTE | 2022-05-04 08:45 | USCV_ITS ---
Linnea Schultz Age: 56 Gender: F : 1965 Exam Date: 05/04/2022 07:46 Ordering Phys: Edilson Francis Technologist: Beny Mendez [place] [facility] [place]: CARDIAC MURMUR BP: 110 / 60 HR: 64 Rhythm: Sinus Technical Quality: Adequate MEASUREMENTS (Male / Female) Normal Values 2D ECHO LV Diastolic Diameter PLAX 4.2 cm 4.2 - 5.9 / 3.9 - 5.3 cm LV Systolic Diameter PLAX 2.5 cm IVS Diastolic Thickness 0.5 cm 0.6 - 1.0 / 0.6 - 0.9 cm IVS Systolic Thickness 0.8 cm LVPW Diastolic Thickness 1.0 cm 0.6 - 1.0 / 0.6 - 0.9 cm LVPW Systolic Thickness 1.5 cm LVOT Diameter 2.0 cm LV Ejection Fraction 2D Teich 70.8 % LV Ejection Fraction MOD 2C 72.1 % LV Ejection Fraction 2C AL 71.9 % LA Diameter 3.1 cm LA Width 3.1 cm LA Height 4.0 cm RA Width 3.3 cm RA Height 4.2 cm Aorta at Sinotubular Diameter 2.3 cm IVC Diameter 1.3 cm M-MODE Aortic Annulus Diameter 2.3 cm LA Ao Ratio MM 1.4 MV E Point Septal Separation 0.4 cm DOPPLER AV Peak Velocity 131.0 cm/s LVOT Peak Velocity 127.0 cm/s AV Area Cont Eq vti 3.1 cm squared AV Area Cont Eq pk 3.1 cm squared MV Peak Velocity 109.0 cm/s MV Area PHT 5.6 cm squared Mitral E to A Ratio 0.9 MV E' Velocity 41.0 cm/s Mitral E to MV E' Ratio 5.6 Mitral E to LV E' Lateral Ratio 5.2 Mitral E to LV E' Septal Ratio 6.2 TR Peak Velocity 169.9 cm/s TR Peak Gradient 11.5 mmHg TR Mean Velocity 131.4 cm/s TR Mean Gradient 7.6 mmHg TR Velocity Time Integral 43.4 cm Right Atrial Pressure 3.0 mmHg Pulmonary Artery Systolic Pressu 14.5 mmHg PV Peak Velocity 80.3 cm/s RV Acceleration Time 0.1 s RV Ejection Time 0.3 s RV AcT/ET 0.4 FINDINGS Left Ventricle Normal left ventricular size, systolic function and wall thickness, with no regional wall motion abnormalities. Left ventricular ejection fraction is estimated at 65 %. Normal diastolic function. Right Ventricle Normal right ventricular size and systolic function. Right ventricular systolic pressure 21 mmHg. Right Atrium Normal right atrial size. Left Atrium Normal left atrial size. Mitral Valve Structurally normal mitral valve. No mitral valve stenosis. Trace mitral valve regurgitation. Aortic Valve Structurally normal trileaflet aortic valve. No aortic valve stenosis. Trace aortic valve regurgitation. Tricuspid Valve Structurally normal tricuspid valve. Trace tricuspid valve regurgitation. Pulmonic Valve Structurally normal pulmonic valve. No pulmonary valve stenosis. Trace pulmonary valve regurgitation. Pericardium No pericardial effusion. Aorta Normal size aortic root and proximal ascending aorta. IVC Normal IVC dimension with >50% respiratory change of the inferior vena cava. CONCLUSIONS 1. Normal left ventricular size, systolic function and wall thickness, with no regional wall motion abnormalities. Left ventricular ejection fraction is estimated at 65 %. Normal diastolic function. 2. Normal right ventricular size and systolic function. 3. Normal pulmonary artery pressure. 4. No prior similar studies to compare. Lynette Moralez MD (Electronically Signed) Final Date: 08 May 2022 12:29 S
== END 2022-05-04 07:29 | disposition home or self-care (01) ==
LOC: RAD 07:29
PROVIDERS: PCP Nurse Practitioner; Visit Provider Nurse Practitioner
DX: R01.1 Cardiac murmur, unspecified (principal)
CPT/HCPCS: 93306

== ENCOUNTER 2022-05-04 07:29 | Outpatient (CLI) | payer OTHER, SELFPAY ==
--- NOTE | 2022-05-04 08:00 | USCV_ITS ---
Linnea Schultz Age: 56 Gender: F : 1965 Exam Date: 05/04/2022 08:20 Ordering Phys: Edilson Francis Technologist: Beny Mendez Exam Location: [facility] [place] Indication: carotid bruit Risk Factors: Previous Vascular Surgery: Right Brachial BP: / Left Brachial BP: / Right Left Velocity (cm/s) Spectral Plaque Velocity (cm/s) Spectral Plaque Syst/Diast Broadening Syst/Diast Broadening 106.90/25.40 Prox CCA 85.40 / 27.30 68.40/ 24.10 Mid CCA 89.70 / 31.60 80.80/ 27.20 Distal CCA 90.60 / 34.20 49.70/ 21.90 Prox ICA 94.00 / 27.20 84.70/ 37.30 Mid ICA 81.60 / 33.40 56.10/ 22.40 Distal ICA 77.70 / 28.70 83.10 ECA 77.70 1.24 ICA/CCA 0.91 Antegrade Vertebral Antegrade 53.40/ 17.60 cm/s 62.10/ 24.90 cm/s Tri Subclavian Tri 73.60 83.10 CONCLUSIONS Right ICA stenosis <50%. Mild atheromatous plaque right carotid bulb/ICA. Left ICA stenosis <50%. Moderate atheromatous plaque left carotid bulb/ICA. Normal antegrade Doppler flow noted in the right vertebral artery. Normal antegrade Doppler flow noted in the left vertebral artery. Rubén Khanna MD (Electronically Signed) Final Date: 04 May 2022 10:53 S
== END 2022-05-04 07:30 | disposition home or self-care (01) ==
PROVIDERS: PCP Nurse Practitioner; Visit Provider Nurse Practitioner
DX: R09.89 Other specified symptoms and signs involving the circulatory and respiratory systems (principal); I65.23 Occlusion and stenosis of bilateral carotid arteries
CPT/HCPCS: 93880

== ENCOUNTER → 2022-09-15 11:40 | Outpatient (BNVA) | payer OTHER, SELFPAY | PROVIDERS: PCP Nurse Practitioner; Visit Provider Nurse Practitioner | DX: E78.2 Mixed hyperlipidemia (principal) | CPT/HCPCS: 80053; 80061 ==

== ENCOUNTER → 2023-03-07 10:04 | Outpatient (BNVA) | payer OTHER, SELFPAY | PROVIDERS: PCP Nurse Practitioner; Visit Provider Nurse Practitioner | DX: F41.9 Anxiety disorder, unspecified (principal); F32.9 Major depressive disorder, single episode, unspecified; E78.2 Mixed hyperlipidemia | CPT/HCPCS: 80053 ==

== ENCOUNTER → 2023-08-22 08:39 | Outpatient (BNVA) | payer OTHER, SELFPAY | PROVIDERS: PCP Nurse Practitioner; Visit Provider Nurse Practitioner | DX: F41.9 Anxiety disorder, unspecified (principal); F32.9 Major depressive disorder, single episode, unspecified; E78.2 Mixed hyperlipidemia | CPT/HCPCS: 80053; 80061 ==

== ENCOUNTER 2023-11-20 15:31 | Outpatient (CLI) | payer OTHER, SELFPAY ==
--- NOTE | 2023-11-20 16:00 | MM_ITS ---
WS: [id number] BILATERAL 3D TOMOSYNTHESIS DIGITAL SCREENING MAMMOGRAPHY WITH CAD CLINICAL INFORMATION: Z12.31 - Encounter for screening mammogram for malignant ... HISTORY: Screening mammogram. No current complaints. COMPARISON: 09/09/2021 TECHNIQUE: Bilateral CC and MLO views. FINDINGS: The breasts are composed of heterogeneous fibroglandular density tissue, which can limit the detectio n of small underlying mass lesions. No suspicious mass, asymmetry, calcifications, or architectural d istortion. No evidence of malignancy. MM/[place] [id number] IMPRESSION: BI-RADS: 1-Negative FOLLOW UP: 1 Year Follow-up Recommend return to annual screening mammography.
== END 2023-11-20 15:32 | disposition home or self-care (01) ==
LOC: MOBLMAM 15:37
PROVIDERS: PCP Nurse Practitioner; Visit Provider Nurse Practitioner
DX: Z12.31 Encounter for screening mammogram for malignant neoplasm of breast (principal)
CPT/HCPCS: 77063; 77067

== ENCOUNTER → 2024-02-06 08:25 | Outpatient (BNVA) | payer OTHER, SELFPAY | PROVIDERS: PCP Nurse Practitioner; Visit Provider Nurse Practitioner | DX: E78.2 Mixed hyperlipidemia (principal) | CPT/HCPCS: 80053; 80061; 84443 ==

== ENCOUNTER 2024-07-08 15:45 | Outpatient (CLI) | payer OTHER, SELFPAY ==
--- NOTE | 2024-07-08 15:58 | XRR_ITS ---
PROCEDURE INFORMATION: Exam: XR Lumbosacral Spine Exam date and time: 07/08/2024 4:15 PM Age: 58 years old Clinical indication: Low back pain; Left hip pain with previous labrum tear x 4 yrs; Additional info: M14.60 - charcot's joint, unspecified site TECHNIQUE: Imaging protocol: Radiologic exam of the lumbosacral spine. Views: 2 or 3 views. COMPARISON: CT lumbar spine wo con* [id number] 10/08/2021 7:46 AM FINDINGS: Bones/joints: Spinal alignment is normal. Vertebral body height is maintained. Intervertebral disc height is maintained. Mild lower lumbar facet spondylosis. The visible portion of the pelvis and sacrum is intact. No acute fracture. Soft tissues: Visible soft tissues are unremarkable. XR/XR lumbar spine 2-3V* [id number] IMPRESSION: 1. No acute findings. 2. Mild lower lumbar facet degeneration.
--- NOTE | 2024-07-08 15:58 | XRR_ITS ---
PROCEDURE INFORMATION: Exam: XR Left Hip Exam date and time: 07/08/2024 4:15 PM Age: 58 years old Clinical indication: Hip pain; Left hip; Additional info: M14.60 - charcot's joint, unspecified site TECHNIQUE: Imaging protocol: Radiologic exam of the left hip. Views: 2 or 3 views hip with pelvis when performed. COMPARISON: CT kidney stone [id number] 10/07/2021 10:24 PM FINDINGS: Bones/joints: Femoroacetabular alignment is normal. There is no significant joint space narrowing. There is subchondral sclerosis in the acetabular roof. There are small femoroacetabular osteophytes. No acute fracture. Soft tissues: Visible soft tissues are unremarkable. XR/XR hip LT 2-3V wo/w pel* [id number] IMPRESSION: Mild arthritis at the left hip.
== END 2024-07-08 15:46 | disposition home or self-care (01) ==
LOC: RAD 15:50
PROVIDERS: PCP Nurse Practitioner; Visit Provider Nurse Practitioner
DX: M14.60 Charcot's joint, unspecified site (principal); M47.896 Other spondylosis, lumbar region; R93.7 Abnormal findings on diagnostic imaging of other parts of musculoskeletal system; M25.752 Osteophyte, left hip; M16.12 Unilateral primary osteoarthritis, left hip
CPT/HCPCS: 72100; 73502

== ENCOUNTER → 2024-08-06 15:35 | Outpatient (BNVA) | payer OTHER, SELFPAY | PROVIDERS: PCP Nurse Practitioner; Visit Provider Nurse Practitioner | DX: E78.2 Mixed hyperlipidemia (principal); E55.9 Vitamin D deficiency, unspecified | CPT/HCPCS: 80053; 80061; 82306; 82607 ==

== ENCOUNTER → 2024-10-17 11:14 | Outpatient (BNVA) | payer OTHER, SELFPAY | PROVIDERS: PCP Nurse Practitioner; Visit Provider Student in an Organized Health Care Education/Training Program | DX: M16.12 Unilateral primary osteoarthritis, left hip (principal) | CPT/HCPCS: 77002 ==

== ENCOUNTER → 2025-03-03 08:35 | Outpatient (BNVA) | payer OTHER, SELFPAY | PROVIDERS: PCP Nurse Practitioner; Visit Provider Nurse Practitioner | DX: E78.2 Mixed hyperlipidemia (principal) | CPT/HCPCS: 80053; 80061; 84443 ==

== ENCOUNTER 2025-04-14 14:07 | Outpatient (CLI) | payer OTHER, SELFPAY ==
--- NOTE | 2025-04-14 14:20 | MM_ITS ---
WS: [id number] BILATERAL 3D TOMOSYNTHESIS DIGITAL SCREENING MAMMOGRAPHY WITH CAD CLINICAL INFORMATION: Z12.31 - Encounter for screening mammogram for malignant ... HISTORY: Screening mammogram. No current complaints. COMPARISON: 2023 TECHNIQUE: Bilateral CC and MLO views. FINDINGS: Scattered fibroglandular densities bilaterally. No suspicious focal mass, asymmetry, calcifications, or architectural distortion. No evidence of malignancy. MM/MM scr tomosynthesis [id number] IMPRESSION: DENSITY: There are scattered areas of fibroglandular density. BI-RADS: 1 - Negative. FOLLOW UP: 1 Year Follow-up Recommend return to annual screening mammography.
== END 2025-04-14 14:08 | disposition home or self-care (01) ==
PROVIDERS: PCP Nurse Practitioner; Visit Provider Nurse Practitioner
DX: Z12.31 Encounter for screening mammogram for malignant neoplasm of breast (principal); R92.323 Mammographic fibroglandular density, bilateral breasts
CPT/HCPCS: 77063; 77067

== ENCOUNTER 2025-04-23 05:40 | Day surgery (SDC) | payer OTHER, SELFPAY ==
[2025-04-23 05:56] VITALS: BP 126/64; PULSE 67; RESP 18; TEMP 36.3; O2SAT 98; BMI 28.3
--- NOTE | 2025-04-23 06:15 | W.PM.OPSUD ---
Surgery/Procedure H&P Update DATE OF PROCEDURE: April 23, 2025 DATE H&P PERFORMED: 04/07/25 H&P UPDATE INFORMATION: I have reviewed H&P completed within last 30 days, I have examined patient prior to procedure, No changes to prior documentation, H&P is in [facility] EMR on date indicated and Risks and benefits of the procedure reviewed PLANNED PROCEDURE: Operation Date: 04/23/25 07:00 Proposed Procedures p Colonoscopy 06414 G0121 Z12.11(Not Applicable) - Alexsander Rodas MD
--- NOTE | 2025-04-23 06:40 | P.ANESASSM_ITS ---
Pre-Anesthetic Assessment Height/Weight: Height 1.65 m Weight 77.111 kg Temp Pulse Resp BP Pulse Ox O2 Del Method 97.4 F L 67 18 126/64 98 Room Air 04/23/25 05:56 04/23/25 05:56 04/23/25 05:56 04/23/25 05:56 04/23/25 05:56 04/23/25 05:56 Preop Diagnosis: Screen Operation Date: 04/23/25 07:00 Proposed Procedures p Colonoscopy 16825 G0121 Z12.11(Not Applicable) - Alexsander Rodas MD Familial anesthetic complications: none Was Beta Ani taken within 24 hours: N/A Was Clonidine taken within 24 hours: N/A Last intake: Intake Last Liquid Date 04/22/25 Last Liquid Time 22:00 Last Solid Date 04/21/25 Last Solid Time 23:59 Social Tobacco and No alcohol 30 pack years Exam alert, oriented x 3, clear to auscultation bilaterally and regular rate & rhythm Airway Cervical ROM: within normal limits Mallampati: Class II Dentition: full Pulmonary None reported CV/HEM Murmur (Pt. denies, not auscultated) None reported Hepatic None reported GI None reported Metabolic Hyper[place] [facility] [place] reported Neuropsych None reported Anesthetic Plan ASA status: 3 Anesthesia: MAC Risk of > 500 ml blood loss (7ml/kg in children): No Medications/Allergies Home Medications ?Medication ?Instructions ?Recorded ?Confirmed ?Last Taken ?Type escitalopram oxalate 10 mg tablet 10 mg PO DAILY #30 t abs 03/06/25 04/20/25 04/23/25 04:30 Rx rosuvastatin 5 mg tablet 5 mg PO DAILY #30 tabs 03/0604/20/25 04/23/25 04:30 Rx Allergies Allergy/AdvReac Type Severity Reaction Status Date / Time No Known Allergies Allergy Verified 04/20/25 11:36 Current Medications Generic Name Dose Route Start Last Admin Trade Name Freq PRN Reason Stop Dose Admin Sodium Chloride 1,000 mls @ 15 mls/hr 04/23/25 05:46 04/23/25 06:02 Sodium Chloride 0.9% IV 04/24/25 05:45 15 mls/hr .Q24H PRN Administration COLONOSCOPY FLUIDS PFSH Anesthesia Medical History Hyperlipidemia, mixed Abuse of smoked substance Atypical chest pain Current smoker Anxiety and depression Surgical History Hx of section H/O oophorectomy History of lumpectomy of right breast Family History Grandmother Cancer Breast Cancer Denies family history of Diabetes CAD (coronary artery disease) Clotting disorder Dementia Chronic kidney disease (CKD) Suicide Anesthesia complication Bleeding disorder Lung disease Stroke Social History Smoking and tobacco/nicotine status: current every day tobacco/nicotine user cigarettes Second hand smoke exposure: Yes Alcohol intake: current Alcohol intake frequency: holidays/special occasions only Substance/Drug Use: never Adopted: No Caregiver/support person: No Lives independently: Yes Household members: other Details: mother Housing: House Marital status: Number of children: 3 Highest education level completed: High School Graduate service: No Current occupational status: employed Current occupation: [employer] Current occupational exposures/hazards: No Pets and animals: No Do you think of yourself as: Straight/Heterosexual Current gender identity: Female Special rohit needs: No Data Anesthesia Cardiac Studies: Echocardiogram 05/04/22 Stress Echocardiogram 07/07/20
[2025-04-23 07:40] VITALS: BP 124/81; PULSE 54; RESP 16; TEMP 36.1; O2SAT 93
[2025-04-23 07:51] VITALS: BP 125/84; PULSE 58; RESP 16; O2SAT 94
[2025-04-23 08:24] VITALS: BP 122/78; PULSE 60; RESP 18; O2SAT 95
--- NOTE | 2025-04-23 08:52 | ANE.PACU2 ---
Inpatient post-anesthesia follow up: Airway intact: Yes Vital signs: Temperature 97.0 F Pulse Rate 60 Respiratory Rate 18 Blood Pressure 122/78 Pulse Oximetry 95 Oxygen Delivery Me thod Room Air Oxygen Flow Rate Fraction of Inspir ed Oxygen Hydration adequate: Yes Nausea and vomiting: No Pain level: 1 Mental status: Baseline
== END 2025-04-23 08:42 | disposition home or self-care (01) ==
PROVIDERS: PCP Nurse Practitioner; Visit Provider Surgery
PROC: 0DJD8ZZ Inspection of Lower Intestinal Tract, Via Natural or Artificial Opening Endoscopic (ICD-10-PCS; CPT 45378; principal; 2025-04-23 07:00)
DX: Z12.11 Encounter for screening for malignant neoplasm of colon (principal); D12.8 Benign neoplasm of rectum; D12.0 Benign neoplasm of cecum; E78.2 Mixed hyperlipidemia; F41.8 Other specified anxiety disorders; Z80.3 Family history of malignant neoplasm of breast; F17.210 Nicotine dependence, cigarettes, uncomplicated; R01.1 Cardiac murmur, unspecified
CPT/HCPCS: 45380; 45381; 45385; 88305; J2704; J3010; J7030

== ENCOUNTER 2025-04-28 13:58 | Outpatient (CLI) | payer OTHER, SELFPAY ==
--- NOTE | 2025-04-28 14:15 | CT_ITS ---
WS: [id number] CT CHEST, ABDOMEN, AND PELVIS TECHNIQUE: Contrast-enhanced CT of the chest, abdomen, and pelvis with coronal and sagittal reformatted images. CLINICAL INFORMATION: colon cancer COMPARISON: None. DLP: 928.[address] scans at [facility] use at least one of these dose optimization techniques: automated exposure control; mA and/or kV adjustment per patient size (includes targeted exams where dose is matched to clinical indication); or iterative reconstruction. CT CHEST: Small noncalcified nodule RIGHT lower lobe measuring 5 mm. Tiny LEFT perifissural nodule. No other suspicious pulmonary parenchymal abnormalities. Aortic calcification. Normal caliber thoracic aorta. Proximal pulmonary arteries are normal. No mediastinal or hilar lymphadenopathy. No axillary lymphadeno en. CT ABDOMEN AND PELVIS: Fatty liver. 11 mm low-attenuation lesion in the dome of the liver technically indeterminate but likely cyst or hemangioma. Tiny low-attenuation lesion in the LEFT hepatic lobe. Splenic granulomas. Gastric rugal thickening can be seen with gastritis. Normal portal vein and splenic vein. Normal caliber abdominal aorta. Celiac and SMA are patent. Adrenal glands are normal. Normal renal parenchymal enhancement. Soft tissue mass in the cecum corresponding to patient's known recently biopsied neoplasm. This measures approximately 4.3 x 3.5 cm. A few small enhancing indeterminate lymph nodes about the cecum the largest measuring 6 mm. Local metastatic disease not excluded. See bookmarked images. Normal size lymph node at the GE junction measuring 7 mm unchanged since 2021. Normal size aortocaval lymph node. Normal sigmoid colon. Benign sclerosis of the L5 vertebral body unchanged since 2021. CT/CT chest abdpel w/*[id number] IMPRESSION: 1. 5 mm noncalcified nodule RIGHT lower lobe was present in 2021. No evidence of metastatic disease in the chest. 2. 4.3 x 3.5 cm cecal mass described above corresponds to the findings on colo noscopy. 3. A few small enhancing lymph nodes about the cecum in the RIGHT lower quadra nt are indeterminant. Metastatic disease not entirely excluded. 4. 11 mm low-attenuation lesion in the liver dome technical indeterminate but likely a small cyst or hemangioma. Additional tiny lesion LEFT hepatic lobe lik jeremi a tiny cyst. 5. Otherwise no evidence of metastatic disease in the abdomen or pelvis.
[2025-04-28 14:34] LABS: Hematocrit 43.6 % (36-47); Hemoglobin 14.50 g/dL (11.27-16.99); Mean Corpuscular HGB Conc 33.3 g/dL (30-55); Mean Corpuscular Hemoglobin 30.0 pg (27-33); Mean Corpuscular Volume 90.3 fl (85-98); Nucleated Red Blood Cells % 0 %; Platelet Count 292 10^3/cmm (157-399); Red Blood Count 4.83 10^6/uL (3.85-5.65); White Blood Count 9.31 10^3/uL (3.29-11.43)
[2025-04-28 15:09] LABS: Carcinoembryonic Antigen 1.8 ng/mL (0.0-4.7)
[2025-04-28] MEDS: iohexol 350 mg/mL 500 mL Btl (per mL) PO (15:19)
[2025-04-28] MEDS: iohexol 350 mg/mL 500 mL Btl (per mL) IV (15:19)
[2025-04-28 15:20] LABS: Alanine Aminotransferase 15 U/L (0-33); Albumin Level 4.5 g/dL (3.5-5.2); Alkaline Phosphatase 70 U/L (35-105); Anion Gap 12.1 (5-19); Aspartate Amino Transferase 18 U/L (0-32); Blood Urea Nitrogen 12 mg/dL (8-23); Calcium 9.5 mg/dL (8.5-10.5); Carbon Dioxide 29 mmol/L (22-29); Chloride 100 mmol/L (98-107); Globulin 2.3 g/dL (1.3-4.6); Glucose 100 mg/dL (65-115); Magnesium 2.0 mg/dL (1.7-2.3); Osmolality Calculated 284 mOsm/kg (285-295); Potassium 4.1 mmol/L (3.5-5.1); Sodium 137 mmol/L (136-145); Total Protein 6.8 g/dL (6.6-8.7)
== END 2025-04-28 13:59 | disposition home or self-care (01) ==
LOC: RAD 14:01
PROVIDERS: PCP Nurse Practitioner; Visit Provider Surgery
DX: C18.9 Malignant neoplasm of colon, unspecified (principal); R91.1 Solitary pulmonary nodule; K63.89 Other specified diseases of intestine; R93.5 Abnormal findings on diagnostic imaging of other abdominal regions, including retroperitoneum; K76.89 Other specified diseases of liver; M48.8X5 Other specified spondylopathies, thoracolumbar region; M47.816 Spondylosis without myelopathy or radiculopathy, lumbar region; K76.0 Fatty (change of) liver, not elsewhere classified
CPT/HCPCS: 36415; 71260; 74177; 80053; 82378; 83735; 84100; 85025